=== PATIENT | female | born 1960 | race Two or more races ===

== ENCOUNTER 2017-02-25 15:54 | Emergency (ER) | payer MEDICARE, OTHER ==
[~2017-02-25] VITALS: Ht 160 cm; Wt 61.2 kg
[~2017-02-25 15:54] MED LIST: AMLO10TA2 PO; Aspirin PO; COLC0.6C3 PO; FENO145T20 PO; GLIM1TAB PO; LISI40TA4 PO; METF10002 PO; OXYB5TAB11 PO; PANT40TA4 PO; SERT100T12 PO; SIMV40TA5 PO
--- NOTE | 2017-02-25 16:00 | NUR ---
RIGHT FOOT PAIN AND SWELLING SINCE LAST NIGHT,NO TRAUMA
[2017-02-25] MEDS ORDERED: HYDROCODONE/APAP 5/325MG 1 EACH TABLET PO ONE (16:30)
[2017-02-25] MEDS ORDERED: HYDROCODONE/APAP 5/325MG 1 EACH TABLET ONE (16:34)
--- NOTE | 2017-02-25 17:27 | NUR ---
Patient discharged to home in stable condition. Written and verbal after care instructions given. Patient verbalizes understanding of instruction.
[2017-02-25 17:30] VITALS: BP 147/80
== END 2017-02-25 17:31 | disposition home or self-care (01) ==
LOC: ER 15:55
DX: M79.671 Pain in right foot (principal); M10.9 Gout, unspecified; E11.9 Type 2 diabetes mellitus without complications; F17.200 Nicotine dependence, unspecified, uncomplicated; I10 Essential (primary) hypertension; Z79.82 Long term (current) use of aspirin; Z88.8 Allergy status to other drugs, medicaments and biological substances
CPT/HCPCS: 73630; 99284; A4606; Z7610

== ENCOUNTER 2021-02-20 14:17 | Emergency (ER) | payer MEDICARE, OTHER ==
[~2021-02-20] VITALS: Ht 160 cm; Wt 63.5 kg
[~2021-02-20 14:17] MED LIST changes: +AMLO-213 PO; -AMLO10TA2 PO; -FENO145T20 PO; +FENO145T21 PO; +LISI40TA13 PO; -LISI40TA4 PO; +METF-442 PO; -METF10002 PO; -OXYB5TAB11 PO; +OXYB5TAB16 PO; -PANT40TA4 PO; +PANT40TA49 PO; +SIMV-49 PO; -SIMV40TA5 PO
[2021-02-20 15:16] VITALS: BP 160/57
--- NOTE | 2021-02-20 17:27 | NUR ---
COVID SPECIMEN OBTAINED AND SENT TO LAB.
[2021-02-20] MEDS ORDERED: ACET-2605 PO (18:47)
--- NOTE | 2021-02-20 18:58 | NUR ---
Patient discharged to home in stable condition. Written and verbal after care instructions given. Patient verbalizes understanding of instruction.
== END 2021-02-20 18:58 | disposition home or self-care (01) ==
LOC: ER 15:11
DX: U07.1 COVID-19 (principal); R91.1 Solitary pulmonary nodule; I70.0 Atherosclerosis of aorta; I10 Essential (primary) hypertension; E11.9 Type 2 diabetes mellitus without complications; F17.200 Nicotine dependence, unspecified, uncomplicated
CPT/HCPCS: 71045-TC; 71046; C9803